=== PATIENT | female | born 1985 | race Caucasian/White ===

== ENCOUNTER 2016-09-30 10:52 | Emergency (ER) | payer SELFPAY ==
[2016-09-30 10:58] VITALS: BP 108/70
[2016-09-30] MEDS ORDERED: Ketorolac INJ* 30 MG/ML 1 ML VIAL IV ONE (13:29)
[2016-09-30] MEDS ORDERED: NS 0.9% 1000 ML* 1,000 ML IV ONE (13:29)
[2016-09-30 13:48] LABS: Hematocrit 34 % (35-47); Mean Corpuscular HGB Conc 32 g/dl (31-36); Mean Corpuscular Hemoglobin 28 pg (27-31); Mean Corpuscular Volume 86 fL (80-97); Mean Platelet Volume 7 um3 (7.4-10.4); Red Blood Count 3.99 10^6/ul (4.0-5.4); Red Cell Distribution Width 15 % (10.5-15); White Blood Count 11.4 10^3/ul (3.5-10.8)
[2016-09-30 13:52] LABS: Urine Bacteria Absent (Absent); Urine Bilirubin Negative (Negative); Urine Glucose Negative (Negative); Urine Nitrite Negative (Negative)
[2016-09-30 14:03] LABS: ALT 9 U/L (7-52); AST 15 U/L (13-39); Alkaline Phosphatase 39 U/L (34-104); Amylase 25 U/L (29-103); Anion Gap 5 mmol/L (2-11); BUN/Creatinine Ratio 13.2 (8-20); Blood Urea Nitrogen 9 mg/dL (6-24); C Reactive Protein 47.14 mg/L (< 5.00); CO2 Carbon Dioxide 29 mmol/L (22-32); Calcium 9.5 mg/dL (8.6-10.3); Chloride 100 mmol/L (101-111); EGFR African American 130.7 (>60); EGFR Non-African American 101.6 (>60); Globulin 4.2 g/dL (2-4); Glucose 83 mg/dL (70-100); Lipase 14 U/L (11.0-82.0); Potassium 3.8 mmol/L (3.5-5.0); Sodium 134 mmol/L (133-145); Total Protein 8.2 g/dL (6.4-8.9)
--- NOTE | 2016-09-30 16:13 | RAD ---
INDICATION: Pelvic pain COMPARISON: None TECHNIQUE: Longitudinal and transverse transabdominal scans of the pelvis were obtained. FINDINGS: Uterus: The uterus is normal in size. There are no focal masses. The uterus measures 9.7 x 5.2 x 6.4 cm. Endometrial thickness: The endometrial thickness is measured at 1.1 cm. . Free fluid: There is no significant free fluid . Ovaries: The ovaries are enlarged bilaterally. The right ovarian volume is 34 mL and the left ovarian volume is 34 mL. The right ovary measures 5.8 x 3.5 x 3.3 cm. The left ovary measures 5.2 x 3.6 x 3.6 cm. There are probable multiple tiny peripheral follicles although the ovaries are not particularly well evaluated on the transabdominal images. Doppler interrogation demonstrates flow to each ovary. Other: None IMPRESSION: Suspect polycystic ovarian syndrome. Correlate with clinical and laboratory findings.
--- NOTE | 2016-09-30 17:06 | ED ---
Richard Terry Billy, scribed for Wolf Renee MD on 09/30/16 at 1326 . Abdominal Pain/Female - HPI Summary HPI Summary: Patient is a 31 year-old female coming to [facility] presenting with constant abdominal pain starting approximately 6 days ago. Pain severity 5/10, but she will have intermittent waves of worsening pain. She states that the pain began in the RLQ and moved to the RUQ. She also complains of pain in the LLQ. Pain is worse with movement and cough, but is present even at rest. Denies N/V/D. Denies any similar previous symptoms. Patient recently flew in from [place] , where she states she was exposed to tear gas. PMHx of PCOS. - History of Current Complaint Chief Complaint: EDAbdPain Stated Complaint: ABD PAIN Time Seen by Provider: 09/30/16 13:22 Hx Obtained From: Patient Onset/Duration: Gradual Onset, Lasting Days, Still Present Timing: Constant Severity Initially: Moderate Severity Currently: Moderate Pain Intensity: 6 Pain Scale Used: 0-10 Numeric Location: Discrete At: RUQ, Discrete At: RLQ, Discrete At: LUQ Radiates: No Aggravating Factor(s): Movement, Other: - cough Alleviating Factor(s): Nothing Associated Signs and Symptoms: Negative: Nausea, Vomiting, Diarrhea Allergies/Adverse Reactions: Allergies Allergy/AdvReac Type Severity Reaction Status Date / Time No Known Allergies Allergy Verified 09/30/16 10:55 PMH/Surg Hx/FS Hx/Imm Hx Endocrine/Hematology History: Denies: Hx Diabetes History: Reports: Other Problems/Disorders - PCOS Infectious Disease History: No Infectious Disease History: Denies: Traveled Outside the [place] in Last 30 Days - Family History Known Family History: Positive: Other - cancer Negative: Cardiac Disease, Hypertension, Diabetes - Social History Alcohol Use: Weekly Substance Use Type: Reports: Marijuana Smoking Status (MU): Current Every Day Smoker Review of Systems Negative: Fever Positive: Abdominal Pain. Negative: Vomiting, Diarrhea, Nausea All Other Systems Reviewed And Are Negative: Yes Physical Exam - Summary Physical Exam Summary: VITAL SIGNS: Reviewed. GENERAL: Patient is a well developed and nourished female who is lying comfortable in the stretcher. Patient is not in any acute respiratory distress. HEAD AND FACE: Normocephalic and atraumatic. EYES: PERRLA, EOMI x 2, No injected conjunctiva. EARS: Hearing grossly intact. Ear canals and tympanic membranes are WNL. MOUTH: Oropharynx within normal limits. NECK: Supple, trachea is midline, no adenopathy, no JVD. CHEST: Symmetric, no tenderness at palpation LUNGS: Clear to auscultation bilaterally. No wheezing or crackles. CVS: RRR,, S1 and S2 present, no murmurs or gallops appreciated. ABDOMEN: Soft, right pelvic and rlq tenderness. No signs of distention. Positive bowel sounds. No rebound no guarding, and no masses palpated. No abdominal bruit or pulsations. EXTREMITIES: FROM in all major joints, no edema, no cyanosis or clubbing. NEURO: Alert and oriented x 3. No acute neurological deficits. Speech is normal. SKIN: Dry and warm Triage Information Reviewed: Yes Vital Signs On Initial Exam: Initial Vitals Temp Pulse Resp BP Pulse Ox 99 F 79 16 108/70 97 09/30/16 10:55 09/30/16 10:55 09/30/16 10:55 09/30/16 10:55 09/30/16 10:55 Vital Signs Reviewed: Yes Diagnostics - Vital Signs Vital Signs Temp Pulse Resp BP Pulse Ox 09/30/16 10:55 99 F 79 16 108/70 97 - Laboratory Lab Results: Lab Results 09/30/16 09/30/16 09/30/16 Range/Units 11:10 13:36 13:36 WBC 11.4 H (3.5-10.8) 10^3/ul RBC 3.99 L (4.0-5.4) 10^6/ul Hgb 11.0 L (12.0-16.0) g/dl Hct 34 L (35-47) % MCV 86 (80-97) fL MCH 28 (27-31) pg MCHC 32 (31-36) g/dl RDW 15 (10.5-15) % Plt Count 463 H (150-450) 10^3/ul MPV 7 L (7.4-10.4) um3 Neut % (Auto) 71.7 (38-83) % Lymph % (Auto) 17.0 L (25-47) % [place] % (Auto) 9.9 H (1-9) % Eos % (Auto) 0.9 (0-6) % Baso % (Auto) 0.5 (0-2) % Absolute Neuts (auto) 8.2 H (1.5-7.7) 10^3/ul Absolute Lymphs (auto) 1.9 (1.0-4.8) 10^3/ul Absolute Monos (auto) 1.1 H (0-0.8) 10^3/ul Absolute Eos (auto) 0.1 (0-0.6) 10^3/ul Absolute Basos (auto) 0.1 (0-0.2) 10^3/ul Absolute Nucleated RBC 0 10^3/ul Nucleated RBC % 0 Sodium 134 (133-145) mmol/L Potassium 3.8 (3.5-5.0) mmol/L Chloride 100 L (101-111) mmol/L Carbon Dioxide 29 (22-32) mmol/L Anion Gap 5 (2-11) mmol/L BUN 9 (6-24) mg/dL Creatinine 0.68 (0.51-0.95) mg/dL Est GFR ( Amer) 130.7 (>60) Est GFR (Non-Af Amer) 101.6 (>60) BUN/Creatinine Ratio 13.2 (8-20) Glucose 83 (70-100) mg/dL Lactic Acid (0.5-2.0) mmol/L Calcium 9.5 (8.6-10.3) mg/dL Total Bilirubin 0.20 (0.2-1.0) mg/dL AST 15 (13-39) U/L ALT 9 (7-52) U/L Alkaline Phosphatase 39 (34-104) U/L C-Reactive Protein 47.14 H (< 5.00) mg/L Total Protein 8.2 (6.4-8.9) g/dL Albumin 4.0 (3.2-5.2) g/dL Globulin 4.2 H (2-4) g/dL Albumin/Globulin Ratio 1.0 (1-3) Amylase 25 L (29-103) U/L Lipase 14 (11.0-82.0) U/L Beta HCG, Quant < 0.60 mIU/mL Urine Color Yellow Urine Appearance Clear Urine pH 6.0 (5-9) Ur Specific [place] 1.019 (1.010-1.030) Urine Protein Negative (Negative) Urine Ketones Negative (Negative) Urine Blood 1+ H (Negative) Urine Nitrate Negative (Negative) Urine Bilirubin Negative (Negative) Urine Urobilinogen Negative (Negative) Ur Leukocyte Esterase Negative (Negative) Urine WBC (Auto) Trace(0-5/hpf) (Absent) Urine RBC (Auto) 1+(3-5/hpf) H (Absent) Ur Squamous Epith Cells Present H (Absent) Urine Bacteria Absent (Absent) Urine Glucose Negative (Negative) Urine Ascorbic Acid * H (Negative) 09/30/16 Range/Units 14:36 WBC (3.5-10.8) 10^3/ul RBC (4.0-5.4) 10^6/ul Hgb (12.0-16.0) g/dl Hct (35-47) % MCV (80-97) fL MCH (27-31) pg MCHC (31-36) g/dl RDW (10.5-15) % Plt Count (150-450) 10^3/ul MPV (7.4-10.4) um3 Neut % (Auto) (38-83) % Lymph % (Auto) (25-47) % [place] % (Auto) (1-9) % Eos % (Auto) (0-6) % Baso % (Auto) (0-2) % Absolute Neuts (auto) (1.5-7.7) 10^3/ul Absolute Lymphs (auto) (1.0-4.8) 10^3/ul Absolute Monos (auto) (0-0.8) 10^3/ul Absolute Eos (auto) (0-0.6) 10^3/ul Absolute Basos (auto) (0-0.2) 10^3/ul Absolute Nucleated RBC 10^3/ul Nucleated RBC % Sodium (133-145) mmol/L Potassium (3.5-5.0) mmol/L Chloride (101-111) mmol/L Carbon Dioxide (22-32) mmol/L Anion Gap (2-11) mmol/L BUN (6-24) mg/dL Creatinine (0.51-0.95) mg/dL Est GFR ( Amer) (>60) Est GFR (Non-Af Amer) (>60) BUN/Creatinine Ratio (8-20) Glucose (70-100) mg/dL Lactic Acid 0.7 (0.5-2.0) mmol/L Calcium (8.6-10.3) mg/dL Total Bilirubin (0.2-1.0) mg/dL AST (13-39) U/L ALT (7-52) U/L Alkaline Phosphatase (34-104) U/L C-Reactive Protein (< 5.00) mg/L Total Protein (6.4-8.9) g/dL Albumin (3.2-5.2) g/dL Globulin (2-4) g/dL Albumin/Globulin Ratio (1-3) Amylase (29-103) U/L Lipase (11.0-82.0) U/L Beta HCG, Quant mIU/mL Urine Color Urine Appearance Urine pH (5-9) Ur Specific [place] (1.010-1.030) Urine Protein (Negative) Urine Ketones (Negative) Urine Blood (Negative) Urine Nitrate (Negative) Urine Bilirubin (Negative) Urine Urobilinogen (Negative) Ur Leukocyte Esterase (Negative) Urine WBC (Auto) (Absent) Urine RBC (Auto) (Absent) Ur Squamous Epith Cells (Absent) Urine Bacteria (Absent) Urine Glucose (Negative) Urine Ascorbic Acid (Negative) Result Diagrams: 09/30/16 13:36 09/30/16 13:36 Lab Statement: Any lab studies that have been ordered have been reviewed, and results considered in the medical decision making process. - Ultrasound No standard instances Ultrasound Interpretation Completed By: Radiologist - Pelvic US: Suspect polycystic ovarian syndrome. Correlate with clinical and laboratory findings. Re-Evaluation - Re-Evaluation First Eval Re-Evaluation Time: 16:43 Comment: Labs and imaging reviewed. Abdominal Pain Fem Course/Dx - Course Course Of Treatment: Patient is a 31 year-old female coming to [facility] presenting with constant abdominal pain starting approximately 6 days ago. Pain severity 5/ 10, but she will have intermittent waves of worsening pain. She states that the pain began in the RLQ and moved to the RUQ. She also complains of pain in the LLQ. Pain is worse with movement and cough, but is present even at rest. Denies N/V/D. Denies any similar previous symptoms. Patient recently flew in from [place], where she states she was exposed to tear gas. PMHx of PCOS. Bloodwork WNL except for WBC of 11.4, Hgb of 11, Hct of 34. CRP is 47.1. UA is contaminated so I will have it sent for cultures. Pelvic US shows suspect PCOS. In the ER course, she was given IV fluids and Toradol and she reports that her sx improved. I offered the patient to have a CT abd/pel, but she declined. The patients mother, who is a nurse, also declined. They will observe for 24 hours and will have her return to the ER with returning pain for possible CT abd. Patient also has dry cough, and she was given codeine and naproxen for pain. Hemodynamically stable, A&Ox3. I discussed all the findings and test results with the patient. Patient was instructed to return to the emergency room immediately if any of the symptoms return or worsens. They understand and agree. They were explained the possibility of an early abdominal pathology which was not detected at this time despite the physical exam and testing. They understand and agree. Abdominal exam before discharge: Soft,NT. No signs of distention. BS present. No rebound no guarding, and no masses palpated. Patient is alert and oriented. Patient is hemodynamically stable. Patient is to follow up with primary care physician in the next 24 hours. Patient and patients parents agree and understands. Declined pelvic exam. - Diagnoses Differential Diagnosis: Positive: Constipation, Ectopic , Ovarian Cyst , Urinary Tract Infection Provider Diagnoses: Abdominal pain, PCOS (polycystic ovarian syndrome) Discharge - Discharge Plan Condition: Stable Disposition: HOME Prescriptions: Codeine TAB* [Codeine Tab*] 30 mg PO Q6H PRN #15 tab MDD Max 6 tabs / day PRN Reason: Cough Naproxen TAB* [Naprosyn TAB*] 500 mg PO Q8H PRN #15 tab PRN Reason: Pain Patient Education Materials: Abdominal Pain (ED), Polycystic Ovarian Syndrome ( ED) Referrals: Ragini Glasgow, [employer] [Primary Care Provider] - The documentation as recorded by the Richard diamond Billy accurately reflects the service I personally performed and the decisions made by me, Wolf Renee MD.
== END 2016-09-30 18:00 | disposition home or self-care (01) ==
LOC: ED 10:52
DX: R10.2 Pelvic and perineal pain (principal); R10.32 Left lower quadrant pain; F17.210 Nicotine dependence, cigarettes, uncomplicated
CPT/HCPCS: 36415; 76856; 80053; 81003; 81015; 82150; 83605; 83690; 84702; 85025; 86140; 96374; 99283; J1885